=== PATIENT | female | born 1970 | race Caucasian/White ===

== ENCOUNTER → 2017-05-12 | Outpatient (CLI) | payer BC ==
[~2017-05-12] MED LIST: ALBUTEROL2 PUFFS/17 IN; AZITHROMYCIN250 MG PO; CIPROFLOXACIN500 MG PO; CYMBALTA60 MG PO; IBUPROFEN 600M600 MG PO; METAMUCIL660 GM PO; PROMETHAZINE HC25 M1 PO
--- NOTE | 2017-05-18 13:01 | RADIOLOGY REPORT PS360 ---
DIG MAMM-SCREEN GEOFF W/CAD CAD Screening ORDERING PHYSICIAN : Braeden Jaffe MD PATIENT AGE: 46 years GENDER: Female COMPARISON: Previous mammograms: May 2015, February 2013, July 2010 INDICATION: Routine screening no hormones stopping 1.5 years ago. No new complaints. Noncontributory family history TECHNIQUE: Standard CC and MLO images were obtained. R2 CAD reviewed. FINDINGS: Moderate density breast bilaterally. No significant new findings. No dominant mass nor suspicious calcifications nor architectural distortion either breast.. Bilateral follow-up one year adequate . IMPRESSION: Stable bilateral mammogram. No areas of significant concern Follow-up one year BI-RADS CATEGORY: 1_Negative RECOMMENDED FOLLOWUP: 12M 12 MONTH FOLLOW-UP (A letter has been sent to the patient regarding results of the study.)
== END ==
LOC: RAD 08:57
DX: Z12.31 Encounter for screening mammogram for malignant neoplasm of breast (principal)
CPT/HCPCS: G0202